=== PATIENT | female | born 1950 | race Caucasian/White ===

== ENCOUNTER 2017-08-03 05:59 | Inpatient (IN) ==
[2017-07-26 14:22] LABS: Basophils # 0.1 10*3/uL (0.0-0.2); Basophils % 0.8 % (0.0-0.8); Eosinophils # 0.2 10*3/uL (0.0-0.87); Eosinophils % 2.1 % (0.00-10.9); Hematocrit 44.3 VOL% (35.7-47.0); Hemoglobin 14.6 GM/DL (12.0-16.0); Immature Granulocytes % 0.3 %; Immature Granulocytes Absolute 0.03 #; Lymphocytes # 2.3 10*3/uL (1.4-4.0); Lymphocytes % 24.3 % (21.3-54.2); Mean Corpuscular Hemoglobin 31 PG (27-34); Mean Corpuscular Volume 95.3 FL (87-102); Mean Platelet Volume 10.1 FL (9.6-12.0); Monocytes # 0.7 10*3/uL (0.11-0.8); Monocytes % 7.2 % (1.7-12.7); Neutrophils # 6.1 10*3/uL (1.4-7.4); Neutrophils % 65.3 % (38.7-73.9); Platelet Count 382 T/CUMM (130-400); Red Blood Count 4.65 MC/CUMM (3.8-5.5); Red Cell Distribution Width 13.6 % (9.3-17.3); White Blood Count 9.3 T/CUMM (4-12)
--- NOTE | 2017-07-26 14:24 | EKG Report ---
Stationary ECG Study [facility] Test Date: 07/26/2017 2:25:26 PM Pat Name: MINERVA STAPLES Department: Room: Gender: F Quilt Stuffer: YURY 08[birth year]-17 : 1950 Requested by: Alexandru Noyola Order Number: [id number] Reading MD: JOSELITO SHEPHERD Intervals [place] Rate: 48 P: 78 WI: 115 QRS: 92 QRSD: 84 T: 90 QT: 475 QTc: 441 Interpretive Statements SINUS BRADYCARDIA WITH SHORT WI INTERVAL Electronically Signed On 07-26-17 15:39:50 CDT by JOSELITO SHEPHERD [email or web address]
[2017-07-26 14:56] LABS: Bilirubin,Total 0.5 MG/DL (0.2-1.0); Calcium 9.5 MG/DL (8.5-10.1); Osmolality,Calculated 271.8 MOS/KG (273-304); Potassium 4.5 MMOL/L (3.5-5.1); Total Protein 7.6 G/DL (6.4-8.3)
--- NOTE | 2017-07-26 15:20 | XRay Report ---
XR chest 2V Indication: Preop evaluation Comparison: Chest x-ray January 01, 2012 Technique: Frontal and lateral views of the chest. Findings: Continued mild cardiomegaly. Chronic change of the lungs without focal consolidation, pleural effusion, or pneumothorax. Visualized osseous and surrounding soft tissue structures appear grossly unchanged.. Continued significant S-shaped curvature of the spine. IMPRESSION: Continued mild cardiomegaly without zuleika pulmonary edema. PROCEDURE INTERPRETED AT [facility] DEPARTMENT OF RADIOLOGY Final Report Signed by: Dr Zackery Coburn
[2017-08-03] MEDS ORDERED: VANCOMYCIN INJ 500 MG in SODIUM CHLORIDE 0.9% 100 ML IV ONE (06:00)
[2017-08-03] MEDS ORDERED: ALBUTEROL/IPRATROPIUM 3 ML NEB RESP TX ONE (06:00)
[2017-08-03] MEDS ORDERED: FAMOTIDINE 20 MG TABLET PO ONE (06:02)
[2017-08-03] MEDS ORDERED: DIAZEPAM 2 MG TABLET PO ONE (06:02)
[2017-08-03] MEDS ORDERED: HEPARIN 5,000 UNIT/1 ML VIAL ONE ×2 (06:45→08:03)
[2017-08-03] MEDS ORDERED: VANCOMYCIN 1,000 MG VIAL ONE (06:45)
[2017-08-03] MEDS ORDERED: VANCOMYCIN 500 MG VIAL ONE ×2 (06:55→08:03)
[2017-08-03] MEDS ORDERED: DIAZEPAM 2 MG TABLET ONE (06:55)
[2017-08-03] MEDS ORDERED: FAMOTIDINE 20 MG TABLET ONE (06:55)
[2017-08-03] MEDS ORDERED: SODIUM CHLORIDE 0.9% 100 ML IV ONE (06:55)
[2017-08-03] MEDS ORDERED: hydrALAZINE 20 MG/1 ML VIAL IV ONE (07:43)
[2017-08-03] MEDS ORDERED: hydrALAZINE 20 MG/1 ML VIAL ONE (07:47)
--- NOTE | 2017-08-03 07:54 | History and Physical Update ---
History and Physical Update - History and Physical H&P was reviewed, the patient examined and there: are no changes in the patients condition since last H&P was completed.
[2017-08-03] MEDS ORDERED: LACTATED RINGERS 1,000 ML IV SCH ×2 (08:00→11:30)
[2017-08-03] MEDS ORDERED: TISSUE ADHESIVE 1 EACH APPLICATOR TOP ONE (08:39)
[2017-08-03] MEDS ORDERED: LIDOCAINE 2% 5 ML VIAL ONE (08:55)
[2017-08-03] MEDS ORDERED: ROCURONIUM 100 MG/10 ML VIAL IV ONE (08:55)
[2017-08-03] MEDS ORDERED: NEOSTIGMINE 10 MG/10 ML VIAL ONE (08:55)
[2017-08-03] MEDS ORDERED: HEPARIN 10,000 UNIT/10 ML VIAL ONE (08:55)
[2017-08-03] MEDS ORDERED: ONDANSETRON 4 MG/2 ML VIAL ONE ×2 (08:55→11:03)
[2017-08-03] MEDS ORDERED: PHENYLEPHRINE 50 MG/5 ML VIAL ONE (08:55)
[2017-08-03] MEDS ORDERED: PROPOFOL 200 MG/20 ML VIAL IV ONE (08:55)
[2017-08-03] MEDS ORDERED: ETOMIDATE 20 MG/10 ML VIAL IV ONE (08:55)
[2017-08-03] MEDS ORDERED: GLYCOPYRROLATE 0.4 MG/2 ML VIAL ONE (08:55)
[2017-08-03] MEDS ORDERED: DEXAMETHASONE 4 MG/1 ML VIAL ONE (08:55)
[2017-08-03] MEDS ORDERED: GLUCAGON 1 MG VIAL IM PRN (10:39)
[2017-08-03] MEDS ORDERED: NALOXONE 0.4 MG/ML VIAL IV PRN (10:39)
[2017-08-03] MEDS ORDERED: DEXTROSE 50% 25 GM/50 ML SYRINGE IV PRN (10:39)
[2017-08-03] MEDS ORDERED: PROMETHAZINE 25 MG/1 ML VIAL IM PRN (10:39)
[2017-08-03] MEDS ORDERED: HYDROmorphone 2 MG/1 ML VIAL IV PRN (10:39)
[2017-08-03] MEDS ORDERED: tiZANidine 4 MG TABLET PO PRN (10:45)
--- NOTE | 2017-08-03 10:52 | Operative Note ---
Date of procedure: 08/03/17 Procedure: Dr. 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 Villaseñor is a 66-year-old woman approximately 9 years post left carotid endarterectomy she is done generally well but has noted the onset of the pulsatile mass that was mildly tender the left side of the neck CT angiogram has revealed an aneurysm of the in common carotid artery just at the end of the endarterectomy site. I discussed the findings with Ms. Villaseñor and I have offered resection or repair of the aneurysm I have explained the alternatives risks and complications which he understands fully and accepts Description of the procedure: After the induction of general endotracheal anesthesia the patient was placed in supine position her neck modestly extended and turned to the right or left neck is prepped with ChloraPrep and draped in usual fashion the right inguinal region is prepped out with ChloraPrep and Ioban in case I need saphenous vein for repair. Used the old vertical incision along the anterior border of the sternocleidomastoid and carried this down behind the platysma I then dissected anterior to the sternocleidomastoid and the internal jugular vein the aneurysm was clearly identified and was manipulated very little in the dissection I dissected down into the common carotid artery much proximal to the aneurysm was able to control this with a maxi vessel loop I gave the patient 5000 units of intravenous heparin I then dissected distal to the aneurysm and resected the carotid bifurcation on noted the bovine patch graft on the internal carotid and a good external carotid artery these were controlled separately with my small vessel loops. With adequate anticoagulation the vessel loops were brought up and opened through the anterior aspect of the carotid aneurysm noting a good bit of grumous material this was dissected out and I allowed the internal and external carotid arteries to backflush well and I then placed an in-line Dawkins-Inahara shunt into the internal carotid and then into the common to reestablish flow I removed all clot from the area I then dissected the wall of the aneurysm off of the common carotid and actually came down to fairly good looking common carotid artery posteriorly. There was plaque on the more proximal and just at the origin of the aneurysm and I did an endarterectomy of this portion the pseudointima in the old section was removed and I therefore used 6-0 Prolene suture to tack this down just proximal to the bifurcation. I chose a bovine pericardial patch and used this to close the artery with a running 5-0 Prolene suture the shunt was removed and appropriate time backflushing internal/ external and flushing the common carotid flushing the entire segment again with heparinized saline with the arteriotomy closed I initiated flow from the common carotid into the external and then restored into the internal carotid artery Doppler was used to check flow and it was quite good in the common internal and external carotid artery heparin was partially reversed with 25 mg of protamine pressure was held for approximately 3 minutes this gave good hemostasis. I used Tisseel to further seal the entire incision was irrigated with vancomycin closed the incision over quarter inch Tommy drain with 2-0 Monocryl on the platysma and skin clips on the skin blood loss is estimated at 150 cc sponge needle and instrument counts are correct patient was taken to recovery in stable condition Surgeon / Physician: Alexandru Noyola Results - Labs CBC & BMP: 07/26/17 14:16 07/26/17 14:12 Discharge Plan - Discharge Medications No Action Albuterol Sulfate [Ventolin HFA] 2 puff INH Q4HR PRN PRN Reason: Shortness Of Breath Aspirin Chew Tab 81 mg PO DAILY Carbidopa/Levodopa [Carbidopa-Levodopa 25-100 Tab] 1 each PO BEDTIME Clopidogrel Bisulfate [Clopidogrel] 75 mg PO DAILY Metoprolol Succinate 100 mg PO DAILY Simvastatin 20 mg PO BEDTIME Fluoxetine HCl [Prozac] 40 mg PO DAILY Hydrocodone/Acetaminophen [Hydrocodon-Acetaminophn 10-325] 1 each PO TID PRN PRN Reason: Pain Tiotropium Br/Olodaterol HCl [Stiolto Respimat Inhal [place]] 2.5 mcg IH DIRECTED PRN PRN Reason: Shortness Of Breath Gabapentin Cap/Tab [Neurontin Cap/Tab] 100 mg PO TID Tizanidine HCl 4 mg PO TID PRN PRN Reason: Muscle Spasm Levothyroxine Tab [Synthroid Tab] 50 mcg PO DAILY@0700 - Follow Up or Referral - Forms/Instructions
[2017-08-03] MEDS ORDERED: HYDROmorphone 2 MG/1 ML VIAL ONE (11:03)
[2017-08-03] MEDS: HYDROmorphone 2 MG/1 ML VIAL IV PRN ×3 (11:03→15:17)
[2017-08-03] MEDS ORDERED: ONDANSETRON 4 MG/2 ML VIAL IV PRN (11:07)
[2017-08-03] MEDS ORDERED: SEVOFLURANE 1 UNIT/15 MINUTE INH ONE (11:18)
[2017-08-03] MEDS ORDERED: fentaNYL 100 MCG/2 ML VIAL ONE (11:18)
[2017-08-03] MEDS ORDERED: SODIUM CHLORIDE 0.9% 250 ML IV ONE (11:18)
--- NOTE | 2017-08-03 11:43 | Anesthesia Post-Op ---
Anesthesia Post OP - Post Ansesthetic Evaluation Patient seen in post op: Yes Resp: within normal limits CV: within normal limits Mental: within normal limits Temp: within normal limits [id number]-[id number]: within normal limits Nausea and Vomiting: within normal limits Pain: within normal limits
[2017-08-03] MEDS ORDERED: NITROPRUSSIDE 50 MG/2 ML VIAL ONE (12:14)
--- NOTE | 2017-08-03 12:25 | Pulmonology Consult Note ---
Assessment and Plan (1) Postop left carotid aneurysm repair Status: Acute Assessment and plan: Patient is in the CCU and does not have any apparent neurologic deficit. She has moderate COPD and has smoked right up to surgery. We need to watch her closely for postoperative complications of bronchitis or pneumonia. Will keep her on bronchodilators. Current Visit: Yes (2) Moderate COPD (chronic obstructive pulmonary disease) Status: Chronic Assessment and plan: PFTs done in the office about 1 month ago showed moderate obstruction with an FEV1 74% of predicted. Should do well with controller inhaler and bronchodilators. Certainly needs long-term smoking cessation as was discussed with her earlier. Current Visit: Yes (3) Tobacco abuse Status: Chronic Assessment and plan: Once again discussed the need to stop smoking. Current Visit: Yes (4) History of stroke Status: Chronic Assessment and plan: She has had a previous stroke with a left hemiparesis. However she is able to move left arm and leg fairly well in the bed. She does have some problems with her gait. Current Visit: Yes (5) Hypothyroid Status: Chronic Assessment and plan: Continue Synthroid. Check TSH Current Visit: Yes (6) Lumbar spinal stenosis Status: Acute Assessment and plan: History of chronic pain and on chronic pain medications. Current Visit: Yes History of Present Illness Chief complaint: Postop left carotid aneurysm repair History of present illness: Ms. Villaseñor is a 66 year old female who had a previous left carotid endarterectomy 10 years ago. She has developed an aneurysm at that site. She was taken for surgery this morning and had it repaired by Dr. Noyola. I saw her a couple of months ago to clear her for the surgery. She has significant COPD. It was highly recommended that she stop smoking for at least 2 weeks before the procedure however she failed to do that. Dr. Kwok and I discussed her case and decided it was better to go ahead and do the procedure. She had at this morning. She is presently in the ICU and appears stable. She is on nasal oxygen moving all 4 extremities and responding to questions. Home Medications Medication Instructions Recorded Confirmed Type Albuterol Sulfate [Ventolin HFA] 2 puff INH Q4HR PRN 07/26/17 08/03/17 History Aspirin Chew Tab 81 mg PO DAILY 07/26/17 08/03/17 History Carbidopa/Levodopa 1 each PO BEDTIME 07/26/17 08/03/17 History [Carbidopa-Levodopa 25-100 Tab] Clopidogrel Bisulfate [Clopidogrel] 75 mg PO DAILY 07/26/17 08/03/17 History Fluoxetine HCl [Prozac] 40 mg PO DAILY 07/26/17 08/03/17 History Gabapentin Cap/Tab [Neurontin 100 mg PO TID 07/26/17 08/03/17 History Cap/Tab] Hydrocodone/Acetaminophen 1 each PO TID PRN 07/26/17 08/03/17 History [Hydrocodon-Acetaminophn 10-325] Levothyroxine Tab [Synthroid Tab] 50 mcg PO DAILY@0700 07/26/17 08/03/17 History Metoprolol Succinate 100 mg PO DAILY 07/26/17 08/03/17 History Simvastatin 20 mg PO BEDTIME 07/26/17 08/03/17 History Tiotropium Br/Olodaterol HCl 2.5 mcg IH DIRECTED PRN 07/26/17 08/03/17 History [Stiolto Respimat Inhal [place]] Tizanidine HCl 4 mg PO TID PRN 07/26/17 08/03/17 History Allergies Allergy/AdvReac Type Severity Reaction Status Date / Time Penicillins Allergy Intermediate RASH Verified 08/03/17 06:38 promethazine [From Phenergan] Allergy Intermediate RASH Verified 08/03/17 06:39 12 point system: reviewed and no additional remarkable complaints except as stated - Respiratory Respiratory: Present: cough, dyspnea on exertion - Musculoskeletal Musculoskeletal: Present: arthralgias, back pain - Neurological Neurological: Present: focal weakness (Has left hemiparesis) - Endocrine Endocrine: Present: other (As type 2 diabetes) - Hematologic/Lymphatic Hematologic/Lymphatic: Absent: other Exam (Pulmonay) H&P - Constitutional Vitals: Period Temp Pulse Resp BP Sys/Church Pulse Ox Last 24 Hr 97.3 F-97.3 F 47-63 14-20 140-210/58-92 96-100 Exam: Blood pressure 170/70. O2 sat 97% on 2 L nasal oxygen. Vital signs otherwise normal. Pupils react to light. Throat is clear. Neck supple. Bandage over the left neck. Chest shows prolonged expiratory phase with no active wheezing. Heart normal rate and rhythm no murmurs no rubs no gallops. Abdomen soft nontender no masses. Extremities no clubbing cyanosis edema. Calves nontender moving all 4 extremities. Medical,Surgical,& Family Hx - Medical History Cardio: History of: Hypertension (MEDICATION) No history of: Cardiac Dysrhythmia, CHF, [place], Pacemaker, Valvular Heart Disease Psychological: History of: Depression (MEDICATION) Neurology: History of: Cerebrovascular Accident (2009), Peripheral Neuropathy ( MEDICATION) No history of: Migraine, Seizures, Vertigo Endocrine: History of: Thyroid Disorder (MEDICATION) Respiratory: History of: COPD (INHALER) Genitourinary: History of: Bladder Problem (WEAK BLADDER) No history of: Kidney Stones Gastrointestinal: History of: Polyps Musculoskeletal: History of: Back/Neck Problems Hematology: No history of: Blood Transfusion Reaction Reproductive: History of: Reproductive Problems (MAMMARY DUCTS STOPPED UP TO LEFT BREAST) Other: No history of: Anesthesia Reactions - Surgical History Cardiac Surgeries: Sugical HX of: Cardiac Catheterization Thoracic Surgeries: Patient denies;: Organ Transplant HEENT Surgeries: Surgical HX of: Eye Surgery (BILATERL CATARACT SURGERY) Abdominal Surgeries: Surgical HX of: Abdominal Surgery, Appendectomy, Cholecystectomy, Colonoscopy (REMOVED POLYPS) Reproductive Surgeries: Surgical HX of;: Hysterectomy, Tubal Ligation Orthopedic Surgeries: Surgical HX of;: Orthopedic Surgery (RIGHT SHOULDER ROTATOR CUFF) - Family History Family History: Reports;: Family Cancer (MOTHER SISTER), Family Heart Disease ( FATHER), Family Hypertension (PARENTS SISTER AND BROTHERS) - Social History Smoking Status: Current every day smoker Frequency of Alcohol Use: None Type of Drug Use: None Results - Labs CBC & BMP: 07/26/17 14:16 07/26/17 14:12 Lab Results: I have reviewed the past 24 hour labs - Diagnostic Findings Procedure: Chest x-ray: image reviewed by me (Kyphoscoliosis and hyperinflation. No acute infiltrates.) Quality Measures - VTE Contraindication to Pharmacological VTE Prophylaxis: High Risk of Bleeding
[2017-08-03] MEDS ORDERED: ALBUTEROL 2.5 MG/3 ML NEB RESP TX PRN (12:30)
[2017-08-03] MEDS ORDERED: NITROPRUSSIDE 100 MG in DEXTROSE 5% 246 ML IV SCH (13:00)
[2017-08-03] MEDS: LACTATED RINGERS 1,000 ML IV SCH ×2 (13:05→22:27)
[2017-08-03] MEDS: ALBUTEROL/IPRATROPIUM 3 ML NEB RESP TX SCH ×2 (13:16→19:01)
[2017-08-03] MEDS: GABAPENTIN 100 MG CAPSULE PO SCH ×2 (15:17→21:08)
[2017-08-03] MEDS ORDERED: METOCLOPRAMIDE 10 MG/2 ML VIAL ONE (17:26)
[2017-08-03] MEDS: CARBIDOPA/LEVODOPA 25-100 MG TABLET PO SCH (21:08)
[2017-08-03] MEDS: SIMVASTATIN 20 MG TABLET PO SCH (21:08)
[2017-08-03] MEDS: oxyCODONE/ACETAMINOPHEN 5-325 MG TABLET PO PRN (21:09)
[2017-08-04] MEDS: ALBUTEROL/IPRATROPIUM 3 ML NEB RESP TX SCH ×4 (00:55→19:02)
[2017-08-04] MEDS: HYDROmorphone 2 MG/1 ML VIAL IV PRN (05:41)
[2017-08-04 06:43] LABS: Free T4 (Free Thyroxine) 1.09 NG/DL (0.76-1.46); Thyroid Stimulating Hormone 1.23 uIU/ml (0.358-3.74)
[2017-08-04] MEDS: LEVOTHYROXINE 50 MCG TABLET PO SCH (06:44)
--- NOTE | 2017-08-04 07:32 | Pulmonology Progress Note ---
Pulmonary - PN: Subj Interval history: This 66-year-old white female had repair of a left carotid aneurysm yesterday by Dr. Noyola. She is a long-term smoker and has COPD. She relates this morning that she had stopped smoking about a week before admission and had started on Chantix. At the present time she is coughing a little but is not very short of breath. Moving all 4 extremities. Should be able to be moved to the floor as soon as nitroprusside can be weaned. Exam (Progress Note) - Constitutional Vitals: Period Temp Pulse Resp BP Sys/Church Pulse Ox Last 24 Hr 97.3 F-98.7 F 47-98 11-22 112-194/49-96 89-100 Exam: Patient's alert. Systolic blood pressures around 160. Vital signs otherwise normal. Pupils react to light. Throat is clear. Neck is supple. Bandage over her left carotid surgical site. Chest shows a few expiratory rhonchi equal breath sounds. Heart normal rate and rhythm no murmurs no rubs or gallops. Abdomen soft nontender no masses. Bowel sounds present. Extremities no clubbing cyanosis or edema. Calves nontender. Moving all 4 extremities without difficulty. Results - Labs CBC & BMP: 07/26/17 14:16 07/26/17 14:12 Lab Results: I have reviewed the past 24 hour labs Assessment and Plan (1) Postop left carotid aneurysm repair Status: Acute Assessment and plan: Patient is in the CCU and does not have any apparent neurologic deficit. She has moderate COPD and has smoked right up to surgery. We need to watch her closely for postoperative complications of bronchitis or pneumonia. Will keep her on bronchodilators. 08/04/2017 no apparent neurologic deficit. Current Visit: Yes (2) Moderate COPD (chronic obstructive pulmonary disease) Status: Chronic Assessment and plan: PFTs done in the office about 1 month ago showed moderate obstruction with an FEV1 74% of predicted. Should do well with controller inhaler and bronchodilators. Certainly needs long-term smoking cessation as was discussed with her earlier. 08/04/2017 continuing dilators. Patient plans to finish up treatment with Chantix and stay off cigarettes long-term. Current Visit: Yes (3) Tobacco abuse Status: Chronic Assessment and plan: Once again discussed the need to stop smoking. Current Visit: Yes (4) History of stroke Status: Chronic Assessment and plan: She has had a previous stroke with a left hemiparesis. However she is able to move left arm and leg fairly well in the bed. She does have some problems with her gait. 08/04/2017 no apparent neurologic deficit at present. Current Visit: Yes (5) Hypothyroid Status: Chronic Assessment and plan: Continue Synthroid. Check TSH 08/04/2017 TSH and free T4 are normal Current Visit: Yes (6) Lumbar spinal stenosis Status: Acute Assessment and plan: History of chronic pain and on chronic pain medications. Current Visit: Yes
[2017-08-04] MEDS: FLUoxetine 20 MG CAPSULE PO SCH (08:07)
[2017-08-04] MEDS: ASPIRIN CHEW 81 MG TABLET PO SCH (08:07)
[2017-08-04] MEDS: CLOPIDOGREL 75 MG TABLET PO SCH (08:07)
[2017-08-04] MEDS: GABAPENTIN 100 MG CAPSULE PO SCH ×3 (08:07→20:41)
[2017-08-04] MEDS: METOPROLOL SUCCINATE XL 100 MG TABLET PO SCH (08:08)
[2017-08-04] MEDS: LACTATED RINGERS 1,000 ML IV SCH (08:09)
--- NOTE | 2017-08-04 08:25 | Event Note ---
Ms. Uribe is awake and alert oriented neurologically intact complaining of neck pain but the incision looks good with no hematoma drain is been removed still running a little bit of hypertension but this is coming under better control breakfast remove the IV fluids and a line plan for her to move upstairs this morning consider going home this afternoon
[2017-08-04] MEDS ORDERED: ASPIRIN EC 81 MG TABLET PO SCH (09:00)
[2017-08-04] MEDS ORDERED: CLOPIDOGREL 75 MG TABLET PO SCH (09:00)
[2017-08-04] MEDS: METOCLOPRAMIDE 10 MG/2 ML VIAL IV PRN ×2 (09:42→21:37)
[2017-08-04] MEDS: guaiFENesin 200 MG/10 ML UDCUP PO PRN (09:55)
[2017-08-04] MEDS: oxyCODONE/ACETAMINOPHEN 5-325 MG TABLET PO PRN (11:16)
--- NOTE | 2017-08-04 14:40 | Event Note ---
Mrs. Villaseñor is awake alert doing reasonably well but with a sore throat slight swelling of the neck. The plan for her to stay the night be up and moving around better before she goes home possibly tomorrow
[2017-08-04] MEDS: BENZOCAINE/MENTHOL LOZENGE 18/BOX PO PRN (16:42)
[2017-08-04] MEDS: SIMVASTATIN 20 MG TABLET PO SCH (20:41)
[2017-08-04] MEDS: CARBIDOPA/LEVODOPA 25-100 MG TABLET PO SCH (20:41)
[2017-08-05] MEDS: ALBUTEROL/IPRATROPIUM 3 ML NEB RESP TX SCH ×4 (00:42→19:41)
[2017-08-05] MEDS: oxyCODONE/ACETAMINOPHEN 5-325 MG TABLET PO PRN ×3 (01:18→15:06)
[2017-08-05] MEDS: LEVOTHYROXINE 50 MCG TABLET PO SCH (06:10)
--- NOTE | 2017-08-05 07:20 | Pulmonology Progress Note ---
Pulmonary - PN: Subj Interval history: This 66-year-old white female had repair of a left carotid aneurysm yesterday by Dr. Noyola. She is a long-term smoker and has COPD. She relates this morning that she had stopped smoking about a week before admission and had started on Chantix. At the present time she is coughing a little but is not very short of breath. Moving all 4 extremities. Should be able to be moved to the floor as soon as nitroprusside can be weaned. 08/05/2017 room air oxygen saturation looks good. Patient does have a mild cough. She has been moving around more. Okay from pulmonary standpoint for her to be discharged. She is to continue her home inhalers. She has started on Chantix and should complete that to stop smoking for good. Exam (Progress Note) - Constitutional Vitals: Period Temp Pulse Resp BP Sys/Church Pulse Ox Last 24 Hr 98.0 F-99.8 F 51-74 13-20 99-226/44-127 88-100 Exam: Patient's alert. Systolic blood pressures around 160. Vital signs otherwise normal except had maximum temperature of 99.8 overnight. Pupils react to light. Throat is clear. Neck is supple. Bandage over her left carotid surgical site. Chest shows a few expiratory rhonchi equal breath sounds. Heart normal rate and rhythm no murmurs no rubs or gallops. Abdomen soft nontender no masses. Bowel sounds present. Extremities no clubbing cyanosis or edema. Calves nontender. Moving all 4 extremities without difficulty. Results - Labs CBC & BMP: 07/26/17 14:16 07/26/17 14:12 Lab Results: I have reviewed the past 24 hour labs Assessment and Plan (1) Postop left carotid aneurysm repair Status: Acute Assessment and plan: Patient is in the CCU and does not have any apparent neurologic deficit. She has moderate COPD and has smoked right up to surgery. We need to watch her closely for postoperative complications of bronchitis or pneumonia. Will keep her on bronchodilators. 08/04/2017 no apparent neurologic deficit. 08/05/2017 seems to be neurologically intact Current Visit: Yes (2) Moderate COPD (chronic obstructive pulmonary disease) Status: Chronic Assessment and plan: PFTs done in the office about 1 month ago showed moderate obstruction with an FEV1 74% of predicted. Should do well with controller inhaler and bronchodilators. Certainly needs long-term smoking cessation as was discussed with her earlier. 08/04/2017 continuing dilators. Patient plans to finish up treatment with Chantix and stay off cigarettes long-term. 08/05/2017 continuing bronchodilators. She is to continue with her Chantix and stay off cigarettes when she gets home Current Visit: Yes (3) Tobacco abuse Status: Chronic Assessment and plan: Once again discussed the need to stop smoking. Current Visit: Yes (4) History of stroke Status: Chronic Assessment and plan: She has had a previous stroke with a left hemiparesis. However she is able to move left arm and leg fairly well in the bed. She does have some problems with her gait. 08/04/2017 no apparent neurologic deficit at present. 08/05/2017 no apparent neurologic deficit. Current Visit: Yes (5) Hypothyroid Status: Chronic Assessment and plan: Continue Synthroid. Check TSH 08/04/2017 TSH and free T4 are normal Current Visit: Yes (6) Lumbar spinal stenosis Status: Acute Assessment and plan: History of chronic pain and on chronic pain medications. Current Visit: Yes Specialty Discharge - Follow Up or Referrals Follow up with: Alexandru Noyola MD [Physician] - 08/16/17 1:45 pm (August 16, 2017 @ 1:45 p.m. )
[2017-08-05] MEDS: GABAPENTIN 100 MG CAPSULE PO SCH ×3 (08:04→21:10)
[2017-08-05] MEDS: CLOPIDOGREL 75 MG TABLET PO SCH (08:04)
[2017-08-05] MEDS: FLUoxetine 20 MG CAPSULE PO SCH (08:04)
[2017-08-05] MEDS: ASPIRIN CHEW 81 MG TABLET PO SCH (08:04)
[2017-08-05] MEDS: METOPROLOL SUCCINATE XL 100 MG TABLET PO SCH (08:04)
--- NOTE | 2017-08-05 08:55 | Discharge Summary ---
Specialty Discharge - Follow Up or Referrals Follow up with: Alexandru Noyola MD [Physician] - 08/16/17 1:45 pm (August 16, 2017 @ 1:45 p.m. ) Discharge Plan - Discharge Data Disposition: Disch To Home/Self Care Condition at Discharge: Stable Discharge Diet: advance to your usual diet Activity: resume usual activities as tolerated Hygiene: may shower Weight Bearing at Discharge: full weight bearing Contact your physician if you experience:: fever over 101, Redness or swelling - Discharge Medications No Action Albuterol Sulfate [Ventolin HFA] 2 puff INH Q4HR PRN PRN Reason: Shortness Of Breath Aspirin Chew Tab 81 mg PO DAILY Carbidopa/Levodopa [Carbidopa-Levodopa 25-100 Tab] 1 each PO BEDTIME Clopidogrel Bisulfate [Clopidogrel] 75 mg PO DAILY Metoprolol Succinate 100 mg PO DAILY Simvastatin 20 mg PO BEDTIME Fluoxetine HCl [Prozac] 40 mg PO DAILY Hydrocodone/Acetaminophen [Hydrocodon-Acetaminophn 10-325] 1 each PO TID PRN PRN Reason: Pain Tiotropium Br/Olodaterol HCl [Stiolto Respimat Inhal [place]] 2 puff INH DAILY Gabapentin Cap/Tab [Neurontin Cap/Tab] 100 mg PO TID Tizanidine HCl 4 mg PO TID PRN PRN Reason: Muscle Spasm Levothyroxine Tab [Synthroid Tab] 50 mcg PO DAILY@0700 - Follow Up or Referral Follow Up: Alexandru Noyola MD [Physician] - 08/16/17 1:45 pm (August 16, 2017 @ 1:45 p.m. ) - Forms/Instructions Exam - Constitutional Vitals: Period Temp Pulse Resp BP Sys/Church Pulse Ox Last 24 Hr 97.4 F-99.8 F 51-74 13-20 99-208/44-127 88-100 DS: Provider Date of admission: 08/03/17 05:59 Primary care physician: Kash Vu, Attending physician on admission: Alexandru Noyola MD Consults: 08/03/17 10:44 Consult to Physician [CONS] Routine Comment: patient known to you Consulting Provider: Aaron Weinberg Consulting Provider Notified: Yes Consult to Specialist Group: Pulmonology Person Notified: gus Date Notified: 08/03/17 Time Notified: 12:10 08/03/17 15:04 Consult to Dietitian [CONS] Routine Reason for Dietitian: Other Consult Comment: computer generated Discharging clinician: Alexandru Noyola MD
--- NOTE | 2017-08-05 09:18 | Pathology Report from [facility] ---
[facility] ACCESSION # : [id number] PATIENT NAME : Ayaka Villaseñor ORDERING DR : ADRIÁN FORD MD CLINICAL HX: Common carotid aneurysm POST-OP DX: Same SPECIMEN INFO: LT carotid aneurysm & plaque GROSS DESCRIPTION: The specimen is received in formalin labeled with the patients name and consists of two fragments of rubbery hyperemic pink-byrnes tissue measuring 4.0 x 1.5 cm collectively. Electronic Wirer sections submitted in one cassette. DIAGNOSIS FOR AYAKA VILLASEÑOR: #1 LEFT CAROTID ANEURYSM & PLAQUE: Arterial wall with calcification and attached thrombus, consistent with aneurysm and plaque. COLLECTED DATE: 08/03/2017 [facility] REPORT DATE: 08/04/2017 ELECTRONICALLY SIGNED BY: Fe Guerrero M.D. 08/04/2017 - 11:04:20 [facility]
[2017-08-05] MEDS: ONDANSETRON 4 MG/2 ML VIAL IV PRN ×2 (12:16→17:14)
--- NOTE | 2017-08-05 14:08 | XRay Report ---
Exam: XR abdomen 1V Date: 08/05/2017 1:30 PM Indication: Nausea and vomiting Comparison: 01/01/2012 Technical: AP supine Findings: Minimal scarring or interstitial thickening in the left base. The liver and spleen shadows are partially obscured but appear otherwise unremarkable. The renal shadows are obscured bilaterally. Prior cholecystectomy clips present. Nonspecific GI pattern with moderate scattered fecal debris in the colon no obvious pneumoperitoneum. Impression: 1. Previous cholecystectomy 2. Levoscoliotic curve thoracolumbar spine thoracic spine 3. Mild constipation PROCEDURE INTERPRETED AT [facility] DEPARTMENT OF RADIOLOGY Final Report Signed by: Dr. Kash Morrow
[2017-08-05 14:44] LABS: Basophils % 0.3 % (0.0-0.8); Eosinophils # 0.2 10*3/uL (0.0-0.87); Eosinophils % 1.6 % (0.00-10.9); Hemoglobin 12.8 GM/DL (12.0-16.0); Immature Granulocytes % 0.4 %; Immature Granulocytes Absolute 0.04 #; Lymphocytes # 1.2 10*3/uL (1.4-4.0); Lymphocytes % 11.2 % (21.3-54.2); Mean Corpuscular Hemoglobin 32 PG (27-34); Mean Corpuscular Volume 99.3 FL (87-102); Mean Platelet Volume 10.9 FL (9.6-12.0); Monocytes # 0.1 10*3/uL (0.11-0.8); Monocytes % 1.2 % (1.7-12.7); Neutrophils # 9.1 10*3/uL (1.4-7.4); Neutrophils % 85.3 % (38.7-73.9); Platelet Count 349 T/CUMM (130-400); Red Blood Count 4.03 MC/CUMM (3.8-5.5); White Blood Count 10.7 T/CUMM (4-12)
[2017-08-05 15:20] LABS: Alanine Aminotransferase 96 U/L (13-56); Albumin 3.3 G/DL (3.4-5.0); Alkaline Phosphatase 91 U/L (45-117); Aspartate Amino Transferase 107 U/L (0-37); Bilirubin,Total < 0.39 MG/DL (0.2-1.0); Blood Urea Nitrogen 12 MG/DL (7-18); Calcium 8.9 MG/DL (8.5-10.1); Glucose 85 MG/DL (74-106); Osmolality,Calculated 279.3 MOS/KG (273-304); Potassium 4.2 MMOL/L (3.5-5.1); Sodium 141 MMOL/L (136-145); Total Protein 6.5 G/DL (6.4-8.3)
[2017-08-05] MEDS: STIOLTO RESPIMAT INH SCH (19:21)
[2017-08-05] MEDS: CARBIDOPA/LEVODOPA 25-100 MG TABLET PO SCH (21:10)
[2017-08-05] MEDS: SIMVASTATIN 20 MG TABLET PO SCH (21:11)
[2017-08-06] MEDS: ALBUTEROL/IPRATROPIUM 3 ML NEB RESP TX SCH ×4 (00:19→19:22)
[2017-08-06] MEDS: oxyCODONE/ACETAMINOPHEN 5-325 MG TABLET PO PRN ×2 (00:31→06:30)
[2017-08-06] MEDS: ONDANSETRON 4 MG/2 ML VIAL IV PRN ×4 (00:52→17:56)
[2017-08-06] MEDS: LEVOTHYROXINE 50 MCG TABLET PO SCH (06:06)
[2017-08-06] MEDS: FLUoxetine 20 MG CAPSULE PO SCH (08:10)
[2017-08-06] MEDS: METOPROLOL SUCCINATE XL 100 MG TABLET PO SCH (08:11)
[2017-08-06] MEDS: ASPIRIN CHEW 81 MG TABLET PO SCH (08:11)
[2017-08-06] MEDS: CLOPIDOGREL 75 MG TABLET PO SCH (08:11)
[2017-08-06] MEDS: GABAPENTIN 100 MG CAPSULE PO SCH ×3 (08:17→21:16)
--- NOTE | 2017-08-06 08:48 | Event Note ---
She feels well. She has no complaints this morning. Her voice is normal. She has no neurologic symptoms no further nausea or vomiting or abdominal symptoms. Her abdomen is benign. I think she should be fine for discharge as planned yesterday. She is to follow-up with Dr. Noyola
--- NOTE | 2017-08-06 09:38 | Pulmonology Progress Note ---
Pulmonary - PN: Subj Interval history: Patient is a 66-year-old white lady that is a smoker that has COPD. She had a left carotid endarterectomy and then had an aneurysm repair of the carotid artery. She says she is feeling better and is breathing okay. She is moving around and moving her extremities fairly well. She is planning on going home today. Exam (Progress Note) - Constitutional Vitals: Period Temp Pulse Resp BP Sys/Church Pulse Ox Last 24 Hr 97.3 F-100.4 F 55-82 14-20 141-188/70-95 91-99 General appearance: no acute distress, under weight - Head Head exam: Present: normal inspection, normocephalic - Eye Eye exam: Present: EOMI. Absent: scleral icterus Pupils: Present: RODRIGO - ENT ENT exam: Present: normal exam - Neck Neck exam: Present: other (The left neck is bandaged.). Absent: lymphadenopathy , thyromegaly - Respiratory Respiratory exam: Present: decreased breath sounds, prolonged expiratory phase. Absent: wheezes - Cardiovascular Cardiovascular exam: Present: regular rate and rhythm. Absent: gallop, systolic murmur - GI/Abdominal GI/Abdominal exam: Present: normal bowel sounds, soft. Absent: organomegaly, tenderness - Extremities Exam Extremities exam: Absent: calf tenderness, edema - Neurological Exam Neurological exam: Present: alert, oriented X3, other (She has no focal deficits ). Absent: motor sensory deficit - Psychiatric Psychiatric exam: Absent: anxious - Skin Skin exam: Present: warm, dry Results - Labs CBC & BMP: 08/05/17 13:37 08/05/17 13:37 Assessment and Plan (1) Postop left carotid aneurysm repair Status: Acute Assessment and plan: The patient apparently did fairly well with her carotid surgery and is stable. She is planning on going home today. Current Visit: Yes (2) Moderate COPD (chronic obstructive pulmonary disease) Status: Chronic Assessment and plan: The patient is a smoker with COPD and will continue bronchodilator therapy. Current Visit: Yes (3) Tobacco abuse Status: Chronic Assessment and plan: She certainly needs to quit smoking. Current Visit: Yes (4) History of stroke Status: Chronic Assessment and plan: The patient has had a previous stroke with mild left hemiparesis. She is doing better now. Current Visit: Yes (5) Hypothyroid Status: Chronic Assessment and plan: She will continue with Synthroid. Current Visit: Yes Specialty Discharge - Follow Up or Referrals Follow up with: Alexandru Noyola MD [Physician] - 08/16/17 1:45 pm (August 16, 2017 @ 1:45 p.m. )
[2017-08-06] MEDS: STIOLTO RESPIMAT INH SCH (09:40)
--- NOTE | 2017-08-06 10:24 | Event Note ---
Ms. Uribe is doing reasonably well from the carotid surgery but continues to have nausea and vomiting she is up a bit but overall I do not think it is safe for her to go home if she is not able to tolerate p.o. diet and take her antihypertensive and other medications. I will add Reglan to and told her though that if she gets up and walks well and was able to eat and comfortable she can go home this afternoon but I would rather wait until we are certain she is able to tolerate a diet
[2017-08-06] MEDS ORDERED: METOCLOPRAMIDE 10 MG TABLET PO SCH (11:30)
[2017-08-06] MEDS: METOCLOPRAMIDE 10 MG/2 ML VIAL IV SCH ×3 (13:18→21:16)
[2017-08-06] MEDS: SIMVASTATIN 20 MG TABLET PO SCH (21:16)
[2017-08-06] MEDS: CARBIDOPA/LEVODOPA 25-100 MG TABLET PO SCH (21:16)
[2017-08-07] MEDS: oxyCODONE/ACETAMINOPHEN 5-325 MG TABLET PO PRN ×4 (00:18→22:33)
[2017-08-07] MEDS: ALBUTEROL/IPRATROPIUM 3 ML NEB RESP TX SCH ×4 (01:29→19:12)
[2017-08-07] MEDS: ONDANSETRON 4 MG/2 ML VIAL IV PRN ×3 (03:22→17:11)
[2017-08-07] MEDS: HYDROmorphone 2 MG/1 ML VIAL IV PRN ×2 (03:29→20:25)
[2017-08-07] MEDS: LEVOTHYROXINE 50 MCG TABLET PO SCH (07:52)
[2017-08-07] MEDS: METOCLOPRAMIDE 10 MG/2 ML VIAL IV SCH ×4 (07:52→20:26)
[2017-08-07] MEDS: METOPROLOL SUCCINATE XL 100 MG TABLET PO SCH (08:26)
[2017-08-07] MEDS: FLUoxetine 20 MG CAPSULE PO SCH (08:27)
[2017-08-07] MEDS: STIOLTO RESPIMAT INH SCH (08:27)
[2017-08-07] MEDS: GABAPENTIN 100 MG CAPSULE PO SCH ×3 (08:27→20:26)
[2017-08-07] MEDS: ASPIRIN CHEW 81 MG TABLET PO SCH (08:27)
[2017-08-07] MEDS: CLOPIDOGREL 75 MG TABLET PO SCH (08:27)
[2017-08-07] MEDS ORDERED: MAGNESIUM HYDROXIDE SUSP 30 ML UDCUP PO PRN (08:34)
--- NOTE | 2017-08-07 09:58 | Event Note ---
Ms. Villaseñor is feeling much better this morning nausea seems to be resolving she has been able to tolerate breakfast blood pressure vital signs and her incision looked good she is neurologically intact. I want her to stay and eat lunch and stir around in the room and out in the flores and that this is doing well she can go home this afternoon I will see her in the coming week to remove skin nisreen discussed with her again wound care exercise and medications.
--- NOTE | 2017-08-07 10:11 | Pulmonology Progress Note ---
Pulmonary - PN: Subj Interval history: Patient is a 66-year-old white lady that is a smoker that has COPD. She had a left carotid endarterectomy and then had an aneurysm repair of the carotid artery. She says she is feeling better and is breathing okay. She is moving around and moving her extremities fairly well. She thought she was going home yesterday but she had a bout of nausea and vomiting. She has not had a bowel movement since surgery. She is better today and trying to eat a little more. She will get some milk of magnesia today. She should be able to go home this afternoon if she feels better. Exam (Progress Note) - Constitutional Vitals: Period Temp Pulse Resp BP Sys/Church Pulse Ox Last 24 Hr 97.6 F-99.2 F 51-69 15-20 132-190/70-86 90-99 Exam: General appearance: no acute distress, under weight, she is sitting up and looks better today. - Head Head exam: Present: normal inspection, normocephalic - Eye Eye exam: Present: EOMI. Absent: scleral icterus Pupils: Present: RODRIGO - ENT ENT exam: Present: normal exam - Neck Neck exam: Present: other (The left neck is bandaged.). Absent: lymphadenopathy , thyromegaly - Respiratory Respiratory exam: Present: She has good breath sounds bilaterally she is moving air okay today. She does not have any wheezing today. - Cardiovascular Cardiovascular exam: Present: regular rate and rhythm. Absent: gallop, systolic murmur - GI/Abdominal GI/Abdominal exam: Present: normal bowel sounds, soft. Absent: organomegaly, tenderness - Extremities Exam Extremities exam: Absent: calf tenderness, edema - Neurological Exam Neurological exam: Present: alert, oriented X3, other (She has no focal deficits ). Absent: motor sensory deficit - Psychiatric Psychiatric exam: Absent: anxious - Skin Skin exam: Present: warm, dry Results - Labs CBC & BMP: 08/05/17 13:37 08/05/17 13:37 Assessment and Plan (1) Postop left carotid aneurysm repair Status: Acute Assessment and plan: The patient apparently did fairly well with her carotid surgery and is stable. She is still doing reasonably well postop. She is having nausea but is better today she has not had a bowel movement yet and will get some laxatives. Hopefully she will go home this afternoon. Current Visit: Yes (2) Moderate COPD (chronic obstructive pulmonary disease) Status: Chronic Assessment and plan: The patient is a smoker with COPD and will continue bronchodilator therapy. Her breathing is doing okay today Current Visit: Yes (3) Tobacco abuse Status: Chronic Assessment and plan: She certainly needs to quit smoking. Current Visit: Yes (4) History of stroke Status: Chronic Assessment and plan: The patient has had a previous stroke with mild left hemiparesis. She is doing better now. Current Visit: Yes (5) Hypothyroid Status: Chronic Assessment and plan: She will continue with Synthroid. Current Visit: Yes Specialty Discharge - Follow Up or Referrals Follow up with: Alexandru Noyola MD [Physician] - 08/16/17 1:45 pm (August 16, 2017 @ 1:45 p.m. )
[2017-08-07] MEDS: SIMVASTATIN 20 MG TABLET PO SCH (20:26)
[2017-08-07] MEDS: CARBIDOPA/LEVODOPA 25-100 MG TABLET PO SCH (20:26)
[2017-08-08] MEDS: ALBUTEROL/IPRATROPIUM 3 ML NEB RESP TX SCH ×4 (00:05→20:20)
[2017-08-08] MEDS: ONDANSETRON 4 MG/2 ML VIAL IV PRN ×4 (02:28→23:23)
[2017-08-08] MEDS: oxyCODONE/ACETAMINOPHEN 5-325 MG TABLET PO PRN (06:42)
[2017-08-08] MEDS: guaiFENesin 200 MG/10 ML UDCUP PO PRN (06:43)
[2017-08-08] MEDS: LEVOTHYROXINE 50 MCG TABLET PO SCH (06:43)
[2017-08-08] MEDS: METOCLOPRAMIDE 10 MG/2 ML VIAL IV SCH ×4 (06:43→20:01)
[2017-08-08] MEDS: BENZOCAINE/MENTHOL LOZENGE 18/BOX PO PRN (06:43)
[2017-08-08] MEDS: ASPIRIN CHEW 81 MG TABLET PO SCH (08:25)
[2017-08-08] MEDS: GABAPENTIN 100 MG CAPSULE PO SCH ×3 (08:26→20:01)
[2017-08-08] MEDS: CLOPIDOGREL 75 MG TABLET PO SCH (08:26)
[2017-08-08] MEDS: FLUoxetine 20 MG CAPSULE PO SCH (08:26)
[2017-08-08] MEDS: METOPROLOL SUCCINATE XL 100 MG TABLET PO SCH (08:26)
[2017-08-08] MEDS: STIOLTO RESPIMAT INH SCH (08:32)
--- NOTE | 2017-08-08 08:41 | Pulmonology Progress Note ---
Pulmonary - PN: Subj Interval history: This 66-year-old white female had repair of a left carotid aneurysm yesterday by Dr. Noyola. She is a long-term smoker and has COPD. She relates this morning that she had stopped smoking about a week before admission and had started on Chantix. At the present time she is coughing a little but is not very short of breath. Moving all 4 extremities. Should be able to be moved to the floor as soon as nitroprusside can be weaned. 08/05/2017 room air oxygen saturation looks good. Patient does have a mild cough. She has been moving around more. Okay from pulmonary standpoint for her to be discharged. She is to continue her home inhalers. She has started on Chantix and should complete that to stop smoking for good. 08/08/2017 she has had some vomiting and has not had a bowel movement since surgery. She has been given laxatives. Has a mild cough. Exam (Progress Note) - Constitutional Vitals: Period Temp Pulse Resp BP Sys/Church Pulse Ox Last 24 Hr 97.3 F-98.8 F 52-70 16-20 143-203/64-112 90-99 Exam: Patient's alert. Systolic blood pressures around 160. Vital signs otherwise normal. Pupils react to light. Throat is clear. Neck is supple. Bandage over her left carotid surgical site. Chest shows a few expiratory rhonchi equal breath sounds. Heart normal rate and rhythm no murmurs no rubs or gallops. Abdomen soft nontender no masses. Bowel sounds present. Extremities no clubbing cyanosis or edema. Calves nontender. Moving all 4 extremities without difficulty. Results - Labs CBC & BMP: 08/05/17 13:37 08/05/17 13:37 Lab Results: I have reviewed the past 24 hour labs Assessment and Plan (1) Postop left carotid aneurysm repair Status: Acute Assessment and plan: Patient is in the CCU and does not have any apparent neurologic deficit. She has moderate COPD and has smoked right up to surgery. We need to watch her closely for postoperative complications of bronchitis or pneumonia. Will keep her on bronchodilators. 08/04/2017 no apparent neurologic deficit. 08/05/2017 seems to be neurologically intact 08/08/2017 no neurologic deficits. Current Visit: Yes (2) Moderate COPD (chronic obstructive pulmonary disease) Status: Chronic Assessment and plan: PFTs done in the office about 1 month ago showed moderate obstruction with an FEV1 74% of predicted. Should do well with controller inhaler and bronchodilators. Certainly needs long-term smoking cessation as was discussed with her earlier. 08/04/2017 continuing dilators. Patient plans to finish up treatment with Chantix and stay off cigarettes long-term. 08/05/2017 continuing bronchodilators. She is to continue with her Chantix and stay off cigarettes when she gets home 08/08/2017 continuing bronchodilators. Continuing discussions about smoking cessation. Current Visit: Yes (3) Tobacco abuse Status: Chronic Assessment and plan: Once again discussed the need to stop smoking. Current Visit: Yes (4) History of stroke Status: Chronic Assessment and plan: She has had a previous stroke with a left hemiparesis. However she is able to move left arm and leg fairly well in the bed. She does have some problems with her gait. 08/04/2017 no apparent neurologic deficit at present. 08/05/2017 no apparent neurologic deficit. 08/08/2017 no neurologic deficit Current Visit: Yes (5) Hypothyroid Status: Chronic Assessment and plan: Continue Synthroid. Check TSH 08/04/2017 TSH and free T4 are normal Current Visit: Yes (6) Lumbar spinal stenosis Status: Acute Assessment and plan: History of chronic pain and on chronic pain medications. Current Visit: Yes Specialty Discharge - Follow Up or Referrals Follow up with: Alexandru Noyola MD [Physician] - 08/16/17 1:45 pm (August 16, 2017 @ 1:45 p.m. )
--- NOTE | 2017-08-08 09:31 | Event Note ---
Ms. Villaseñor continues to complain of nausea and had a moderate left-sided headache with start shooting stars yesterday no obvious neurologic deficit that I can detect but I will repeat her CT scan of the brain today to be certain we do not have a reperfusion injury although there was no significant stenosis also like to be certain there is no intracerebral hemorrhage that might be the source of her nausea and headache
--- NOTE | 2017-08-08 10:30 | CT Report ---
Exam: CT head without intravenous contrast Clinical History: 66-year-old female with nausea vomiting and dizziness Technique: Axial computed tomography images of the head/brain without intravenous contrast Comparison: January 10, 2012 Findings: Brain: Encephalomalacia of the left temporal occipital lobe with patchy microangiopathic small vessel ischemic changes. Sanabria-white matter distinction maintained. No mass effect. No intra or extra-axial hemorrhage. Ventricles: Unremarkable. No ventriculomegaly. Bones/joints: Calvarium is intact Soft tissues: Unremarkable Sinuses: No active paranasal sinus process Mastoid air cells: Unremarkable visualized. Impression: 1. Remote left [employer] distribution infarction with microangiopathic small vessel ischemic changes. No acute intracranial abnormality. PROCEDURE INTERPRETED AT [facility] DEPARTMENT OF RADIOLOGY Final Report Signed by: Sky Sanabria
[2017-08-08] MEDS: amLODIPine 5 MG TABLET PO SCH (15:31)
[2017-08-08] MEDS: HYDROmorphone 2 MG/1 ML VIAL IV PRN ×3 (17:37→23:23)
[2017-08-08] MEDS: SIMVASTATIN 20 MG TABLET PO SCH (20:01)
[2017-08-08] MEDS: CARBIDOPA/LEVODOPA 25-100 MG TABLET PO SCH (20:01)
[2017-08-09] MEDS: ALBUTEROL/IPRATROPIUM 3 ML NEB RESP TX SCH ×3 (00:19→12:48)
[2017-08-09] MEDS: HYDROmorphone 2 MG/1 ML VIAL IV PRN ×2 (02:31→06:38)
[2017-08-09] MEDS: LEVOTHYROXINE 50 MCG TABLET PO SCH (06:38)
--- NOTE | 2017-08-09 08:42 | Pulmonology Progress Note ---
Pulmonary - PN: Subj Interval history: This 66-year-old white female had repair of a left carotid aneurysm yesterday by Dr. Noyola. She is a long-term smoker and has COPD. She relates this morning that she had stopped smoking about a week before admission and had started on Chantix. At the present time she is coughing a little but is not very short of breath. Moving all 4 extremities. Should be able to be moved to the floor as soon as nitroprusside can be weaned. 08/05/2017 room air oxygen saturation looks good. Patient does have a mild cough. She has been moving around more. Okay from pulmonary standpoint for her to be discharged. She is to continue her home inhalers. She has started on Chantix and should complete that to stop smoking for good. 08/08/2017 she has had some vomiting and has not had a bowel movement since surgery. She has been given laxatives. Has a mild cough. 08/09/2017 nausea and headache improved. Brain CT yesterday showed nothing acute. She has an old posterior cerebral artery area stroke. Blood pressure is a little better with systolic around 150. When she is discharged she needs to stay on the Norvasc in addition to the Toprol. Dr. Vu is her primary doctor and can see her back in follow-up. Exam (Progress Note) - Constitutional Vitals: Period Temp Pulse Resp BP Sys/Church Pulse Ox Last 24 Hr 97.8 F-98.5 F 50-80 14-20 126-192/72-94 89-100 Exam: Patient's alert. Systolic blood pressures around 150. Vital signs otherwise normal. Pupils react to light. Throat is clear. Neck is supple. Bandage over her left carotid surgical site. Chest shows a few expiratory rhonchi equal breath sounds. Heart normal rate and rhythm no murmurs no rubs or gallops. Abdomen soft nontender no masses. Bowel sounds present. Extremities no clubbing cyanosis or edema. Calves nontender. Moving all 4 extremities without difficulty. Results - Labs CBC & BMP: 08/05/17 13:37 08/05/17 13:37 Lab Results: I have reviewed the past 24 hour labs Assessment and Plan (1) Postop left carotid aneurysm repair Status: Acute Assessment and plan: Patient is in the CCU and does not have any apparent neurologic deficit. She has moderate COPD and has smoked right up to surgery. We need to watch her closely for postoperative complications of bronchitis or pneumonia. Will keep her on bronchodilators. 08/04/2017 no apparent neurologic deficit. 08/05/2017 seems to be neurologically intact 08/08/2017 no neurologic deficits. 08/09/2017 again no neurologic deficits. Current Visit: Yes (2) Moderate COPD (chronic obstructive pulmonary disease) Status: Chronic Assessment and plan: PFTs done in the office about 1 month ago showed moderate obstruction with an FEV1 74% of predicted. Should do well with controller inhaler and bronchodilators. Certainly needs long-term smoking cessation as was discussed with her earlier. 08/04/2017 continuing dilators. Patient plans to finish up treatment with Chantix and stay off cigarettes long-term. 08/05/2017 continuing bronchodilators. She is to continue with her Chantix and stay off cigarettes when she gets home 08/08/2017 continuing bronchodilators. Continuing discussions about smoking cessation. 08/09/2017 not wheezing now. Discussed need for long-term smoking cessation. Current Visit: Yes (3) Tobacco abuse Status: Chronic Assessment and plan: Once again discussed the need to stop smoking. Current Visit: Yes (4) History of stroke Status: Chronic Assessment and plan: She has had a previous stroke with a left hemiparesis. However she is able to move left arm and leg fairly well in the bed. She does have some problems with her gait. 08/04/2017 no apparent neurologic deficit at present. 08/05/2017 no apparent neurologic deficit. 08/08/2017 no neurologic deficit 08/09/[address] showed evidence of old left posterior circulation stroke. She has no significant sequelae. There are no new findings on brain CT. Current Visit: Yes (5) Hypothyroid Status: Chronic Assessment and plan: Continue Synthroid. Check TSH 08/04/2017 TSH and free T4 are normal Current Visit: Yes (6) Lumbar spinal stenosis Status: Acute Assessment and plan: History of chronic pain and on chronic pain medications. Current Visit: Yes Specialty Discharge - Follow Up or Referrals Follow up with: Alexandru Noyola MD [Physician] - 08/16/17 1:45 pm (August 16, 2017 @ 1:45 p.m. )
[2017-08-09] MEDS: METOPROLOL SUCCINATE XL 100 MG TABLET PO SCH (09:11)
[2017-08-09] MEDS: METOCLOPRAMIDE 10 MG/2 ML VIAL IV SCH ×2 (09:30→12:25)
[2017-08-09] MEDS: FLUoxetine 20 MG CAPSULE PO SCH (09:32)
[2017-08-09] MEDS: GABAPENTIN 100 MG CAPSULE PO SCH (09:32)
[2017-08-09] MEDS: CLOPIDOGREL 75 MG TABLET PO SCH (09:32)
[2017-08-09] MEDS: ASPIRIN CHEW 81 MG TABLET PO SCH (09:32)
[2017-08-09] MEDS: amLODIPine 5 MG TABLET PO SCH (09:33)
[2017-08-09] MEDS: STIOLTO RESPIMAT INH SCH (10:45)
--- NOTE | 2017-08-09 10:54 | Discharge Summary ---
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 Her neck looks good and is healing her vital signs are much better controlled and she is ready for discharge I have instructed her on the necessity of smoking cessation although I do not anticipate her following these recommendations long- term. I have instructed her in wound care and exercise and medications basically there will be no changes in her home medications that she was already on aspirin and Plavix. She takes [place] routinely for chronic pain which she has at home I will see her in the office next week for staple removal. Dr. Vu is her family physician and he will follow up with her on a regular basis. Specialty Discharge - Follow Up or Referrals Follow up with: Alexandru Noyola MD [Physician] - 08/16/17 1:45 pm (August 16, 2017 @ 1:45 p.m. ) Discharge Plan - Discharge Data Condition at Discharge: Stable Discharge Diet: advance to your usual diet Activity: resume usual activities as tolerated Hygiene: may shower Weight Bearing at Discharge: full weight bearing Driving: not until seen by doctor Contact your physician if you experience:: fever over 101, Redness or swelling - Discharge Medications No Action Albuterol Sulfate [Ventolin HFA] 2 puff INH Q4HR PRN PRN Reason: Shortness Of Breath Aspirin Chew Tab 81 mg PO DAILY Carbidopa/Levodopa [Carbidopa-Levodopa 25-100 Tab] 1 each PO BEDTIME Clopidogrel Bisulfate [Clopidogrel] 75 mg PO DAILY Metoprolol Succinate 100 mg PO DAILY Simvastatin 20 mg PO BEDTIME Fluoxetine HCl [Prozac] 40 mg PO DAILY Hydrocodone/Acetaminophen [Hydrocodon-Acetaminophn 10-325] 1 each PO TID PRN PRN Reason: Pain Tiotropium Br/Olodaterol HCl [Stiolto Respimat Inhal [place]] 2 puff INH DAILY Gabapentin Cap/Tab [Neurontin Cap/Tab] 100 mg PO TID Tizanidine HCl 4 mg PO TID PRN PRN Reason: Muscle Spasm Levothyroxine Tab [Synthroid Tab] 50 mcg PO DAILY@0700 - Follow Up or Referral Follow Up: Alexandru Noyola MD [Physician] - 08/16/17 1:45 pm (August 16, 2017 @ 1:45 p.m. ) - Forms/Instructions Instructions: Carotid Endarterectomy (DC) Exam - Constitutional Vitals: Period Temp Pulse Resp BP Sys/Church Pulse Ox Last 24 Hr 97.8 F-98.5 F 50-80 14-20 126-192/72-94 89-100 DS: Provider Date of admission: 08/03/17 05:59 Primary care physician: Kash Vu, Attending physician on admission: Alexandru Noyola MD Consults: 08/03/17 10:44 Consult to Physician [CONS] Routine Comment: patient known to you Consulting Provider: Aaron Weinberg Consulting Provider Notified: Yes Consult to Specialist Group: Pulmonology Person Notified: gus Date Notified: 08/03/17 Time Notified: 12:10 08/03/17 15:04 Consult to Dietitian [CONS] Routine Reason for Dietitian: Other Consult Comment: computer generated Discharging clinician: Alexandru Noyola MD
[2017-08-09 11:24] VITALS: BP 123/73
--- NOTE | 2017-08-15 08:21 | Physician Query Form ---
CLICK EDIT DOCUMENT TO SELECT QUERY ANSWER --> OK --> SIGN Marge Savage RN Clinical [facility] W) [phone] (f) [phone] [email or web address] PROVIDERS: Make your selection(s) from the choices in EACH section by typing an "x" and enter comments in the comment section. Please use your independent medical judgment in providing your response. This request does not imply that any particular answer is desired or expected. 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 ( ) Aneurysm is not a late post op complication of previous carotid endarterectomy. ( ) Other, please specify: ( ) Clinically unable to determine COMMENTS: PLEASE ALSO DOCUMENT RESPONSE IN PROGRESS NOTES AND/OR DISCHARGE SUMMARY Use of terms such as suspected, likely, or probable (associated with a specific diagnosis that is being evaluated, monitored, or treated as if it exists) are acceptable and can be restated in the discharge summary if not ruled out. MTDD
== END 2017-08-09 14:00 | disposition home or self-care (01) | DRG 253 ==
LOC: N.SDSINP 05:59 → N.ICU 12:07 → N.3E 08-04 12:44
PROVIDERS: ADMIT Surgery; ATTEND Surgery

== ENCOUNTER 2018-10-10 04:10 | Inpatient (IN) ==
[2018-10-10] MEDS ORDERED: ONDANSETRON 4 MG/2 ML VIAL IV STA (04:18)
[2018-10-10] MEDS ORDERED: PANTOPRAZOLE INJ 80 MG in SODIUM CHLORIDE 0.9% 100 ML IV STA (04:18)
[2018-10-10] MEDS ORDERED: SODIUM CHLORIDE 0.9% 1,000 ML IV STA (04:18)
[2018-10-10 04:33] LABS: Basophils # 0.1 10*3/uL (0.0-0.2); Basophils % 0.4 % (0.0-0.8); Eosinophils # 0.1 10*3/uL (0.0-0.87); Eosinophils % 1.2 % (0.00-10.9); Hematocrit 29.1 VOL% (35.7-47.0); Hemoglobin 8.9 GM/DL (12.0-16.0); Immature Granulocytes Absolute 0.11 #; Lymphocytes # 2.4 10*3/uL (1.4-4.0); Lymphocytes % 21.6 % (21.3-54.2); Mean Corpuscular HGB Conc 30.6 GM/DL (32-36); Mean Corpuscular Hemoglobin 28 PG (27-34); Mean Corpuscular Volume 90.7 FL (87-102); Mean Platelet Volume 10.9 FL (9.6-12.0); Monocytes # 0.6 10*3/uL (0.11-0.8); Monocytes % 5.1 % (1.7-12.7); Neutrophils % 70.7 % (38.7-73.9); Platelet Count 356 T/CUMM (130-400); Red Blood Count 3.21 MC/CUMM (3.8-5.5); Red Cell Distribution Width 16.7 % (9.3-17.3); White Blood Count 11.3 T/CUMM (4-12)
[2018-10-10 04:42] LABS: INR 1.1; PT Patient Result 11.2 SECS; Partial Thromboplastin Time < 21.0 SECS (0-40)
[2018-10-10 04:55] LABS: Hypochromasia 1+; Platelet Estimate Adequate
[2018-10-10] MEDS ORDERED: PANTOPRAZOLE 40 MG VIAL IV ONE (05:07)
[2018-10-10 05:13] LABS: Albumin 2.6 G/DL (3.4-5.0); Bilirubin,Total 0.4 MG/DL (0.2-1.0); Calcium 8.3 MG/DL (8.5-10.1); Osmolality,Calculated 298.7 MOS/KG (273-304); Potassium 4.3 MMOL/L (3.5-5.1); Total Protein 5.6 G/DL (6.4-8.3)
[2018-10-10] MEDS ORDERED: SODIUM CHLORIDE 0.9% 1,000 ML IV PRN (05:36)
[2018-10-10 05:58] LABS: Hematocrit 31.6 VOL% (35.7-47.0); Hemoglobin 9.8 GM/DL (12.0-16.0)
[2018-10-10] MEDS: PANTOPRAZOLE INJ 200 MG in SODIUM CHLORIDE 0.9% 250 ML IV SCH (06:25)
[2018-10-10] MEDS: NICOTINE 21 MG/24 HR PATCH TRANSDERM SCH (09:08)
[2018-10-10 10:14] LABS: Hematocrit 25.5 VOL% (35.7-47.0); Hemoglobin 7.9 GM/DL (12.0-16.0)
[2018-10-10] MEDS: GABAPENTIN 400 MG CAPSULE PO SCH ×2 (15:27→20:41)
[2018-10-10] MEDS ORDERED: SIMVASTATIN 20 MG TABLET PO SCH (21:00)
[2018-10-10] MEDS ORDERED: CARBIDOPA/LEVODOPA 25-100 MG TABLET PO SCH (21:00)
[2018-10-10 22:02] LABS: Hematocrit 33.6 VOL% (35.7-47.0); Hemoglobin 11.1 GM/DL (12.0-16.0)
[2018-10-11 05:13] LABS: Hemoglobin 10.7 GM/DL (12.0-16.0)
[2018-10-11 05:18] LABS: PT Patient Result 10.6 SECS
[2018-10-11 05:48] LABS: Calcium 8.5 MG/DL (8.5-10.1); Osmolality,Calculated 293.6 MOS/KG (273-304); Potassium 3.5 MMOL/L (3.5-5.1)
[2018-10-11] MEDS ORDERED: LEVOTHYROXINE 50 MCG TABLET PO SCH (07:00)
[2018-10-11] MEDS ORDERED: UMECLIDINIUM BRM INH SCH (09:00)
[2018-10-11] MEDS ORDERED: ESCITALOPRAM 10 MG TABLET PO SCH (09:00)
[2018-10-11] MEDS ORDERED: PROPOFOL 200 MG/20 ML VIAL IV ONE (09:00)
[2018-10-11] MEDS ORDERED: VILANTEROL TR INH SCH (09:00)
[2018-10-11] MEDS ORDERED: LIDOCAINE 100 MG/5 ML SYRINGE ONE (09:00)
[2018-10-11 10:46] VITALS: BP 158/82
[2018-10-11] MEDS: PANTOPRAZOLE INJ 200 MG in SODIUM CHLORIDE 0.9% 250 ML IV SCH (11:28)
[2018-10-11] MEDS: GABAPENTIN 400 MG CAPSULE PO SCH (11:29)
[2018-10-11] MEDS: NICOTINE 21 MG/24 HR PATCH TRANSDERM SCH (11:29)
[2018-10-11 14:19] LABS: Hematocrit 35.3 VOL% (35.7-47.0); Hemoglobin 11.5 GM/DL (12.0-16.0)
[2018-10-13] MEDS ORDERED: PANTOPRAZOLE 40 MG VIAL IV SCH (09:00)
== END 2018-10-11 14:12 | disposition home or self-care (01) | DRG 378 ==
LOC: N.ED 04:10 → SUATTDRO 05:16 → N.EDINP 05:16 → N.CC 05:35 → N.4E 18:17
PROVIDERS: ADMIT Internal Medicine; ATTEND Internal Medicine